=== PATIENT | female | born 1985 | race Caucasian/White ===

== ENCOUNTER 2019-08-01 01:45 | Inpatient (IN) ==
[2019-08-01] MEDS ORDERED: INFLUENZA ADMINISTRATION CHARGE ONE (02:21)
[2019-08-01] MEDS ORDERED: INFLUENZA VIRUS QUAD VACCINE 0.5 ML SYR IM ONE (02:21)
[2019-08-01] MEDS ORDERED: LACTATED RINGER'S 1,000 ML IV SCH ×3 (02:45→05:15)
[2019-08-01] MEDS ORDERED: cefOXitin 2,000 MG in DEXTROSE 5% 50 ML IV SCH (03:00)
[2019-08-01] MEDS ORDERED: CITRIC ACID/SODIUM CITRATE 15 ML UDC PO SCH (03:00)
[2019-08-01 03:06] LABS: Basophils # (auto) 0.03 K/uL (0-0.2); Basophils % (auto) 0.3 %; Eosinophils # (auto) 0.11 K/uL (0-0.5); Eosinophils % (auto) 0.9 %; Hematocrit (blood only) 35.8 % (37-47); Hemoglobin 11.9 g/dL (12.0-16.0); Immature Granulocytes # (auto) 0.07 K/uL (0.00-0.02); Immature Granulocytes % (auto) 0.6 %; Lymphocytes # (auto) 2.84 K/uL (1.2-3.4); Lymphocytes % (auto) 23.8 %; Mean Corpuscular Hemoglobin 29.2 pg (25-34); Mean Corpuscular Volume 87.7 fL (80-100); Mean Platelet Volume 10.6 fL (7.4-10.4); Monocytes # (auto) 0.75 K/uL (0.11-0.59); Monocytes % (auto) 6.3 %; Neutrophils # (auto) 8.11 K/uL (1.4-6.5); Neutrophils % (auto) 68.1 %; Platelet Count 218 K/uL (130-400); RDW Coefficient of Variation 14.1 % (11.5-14.5); RDW Standard Deviation 45.5 fL (36.4-46.3); Red Blood Count 4.08 M/uL (4.2-5.4); White Blood Count 11.91 K/uL (4.8-10.8)
[2019-08-01 03:12] LABS: Mean Corpuscular Hgb Conc 33.2 g/dL (32-36)
--- NOTE | 2019-08-01 03:28 | Anesthesiology Consultation ---
Date of Service August 01, 2019 Assessment & Plan ASA ASA3 Proposed Anesthesia Anesthesia Type: Spinal Risk / Benefits Reviewed With: PT / POA / Parent / Guardian, Accepts Plan and Informed Consent Obtained History Surgery Operation Date: 08/01/19 02:30 Proposed Procedures p Section in LD - Bhavin Alfaro MD Height/Weight Height: 5 ft 6 in Weight: 112.037 kg Allergies Allergy/AdvReac Type Severity Reaction Status Date / Time Penicillins Allergy Unknown Rash Verified 08/01/19 02:05 Medications Home Medications Medication Instructions Recorded Confirmed Last Taken PNV cmb#95-ferrous fumarate-FA 1 tab PO QAM 07/20/19 08/01/19 07/31/19 08:00 [] cetirizine [Zyrtec] 10 mg PO QPM 07/20/19 08/01/19 07/30/19 22:00 insulin glargine [Lantus Solostar 18 unit SUBCUT QPM 07/20/19 08/01/19 07/31/19 21:00 U-100 Insulin] Active Medications Generic Name Dose Route Start Last Admin Trade Name Freq PRN Reason Stop Dose Admin Lactated Ringer's 1,000 mls @ 999 mls/hr 08/01/19 02:45 08/01/19 03:02 Lr IV 08/01/19 03:45 999 mls/hr .Q1H1M ALINE Administration NPO Date Last Intake of Fluids: 08/01/19 Time Last Intake of Fluids: 00:00 Date Last Intake of Solids: 08/01/19 Time Last Intake of Solids: 00:00 Past Medical History Medical History Diabetes in undelivered + insulin during Seasonal allergies Exercise / Class Metabolic Activity II 4-5 Yardwork/Stairs/Walk up hill Past Surgical History Surgical History Hx of section 2018: c/s done 2/2 large fetus SAB with good jeanmarie-operative pain control Past Anesthesia History No Hx of Anesthesia Complications and No Family Hx of Anesthesia Complications History of PONV No Hx of PONV and No Hx of Motion Sickness Social History Smoking Status: Never smoker Hx Alcohol Use: No alcohol intake frequency: holidays/special occasions only Hx Substance Use: No substance use type: does not use Review of Systems denies fever/cough/ colds/ chest pain/ SOB/ LANNY Constitutional: no fever and no chills Respiratory: no cough and no dyspnea denies LANNY Cardiovascular: no chest pain and no dyspnea on exertion Physical Exam Vital Signs Last Vital Signs Temp 36.6 C 08/01/19 02:03 Pulse 100 H 08/01/19 02:03 Resp 18 08/01/19 02:03 BP 125/83 08/01/19 02:03 ENMT Mouth: no TMJ abnormality and no dentition abnormality Thyromental Distance: > or= 3.5 Finger Breadths Mallampati Class: II Neck neck extension not limited Respiratory normal respiratory effort; no respiratory distress Auscultation: lungs clear to auscultation bilaterally Cardiovascular Rate/Rhythm: regular rate and regular rhythm Neurologic moves all extremities Psychiatric Orientation: alert and oriented x 3 Testing Laboratory Results 08/01/19 02:49
--- NOTE | 2019-08-01 04:25 | History and Physical Report ---
DATE OF ADMISSION: 08/01/2019 CHIEF COMPLAINT: Intrauterine at term, gestational diabetes, ruptured membranes, and previous . HISTORY OF PRESENT ILLNESS: The patient is a 34-year-old 2, para 1. General health is good. She is allergic to penicillin which gives her a rash. Her course was complicated by gestational diabetes. She is on insulin. She also has an estimated weight of over 9 pounds. Her due date is 08/07/2019 and she called the answering service and said she had bailey rupture of the membranes at 11:45 p.m. on 07/31/2019. OBSTETRICAL HISTORY: As follows; in 2017 she had a live male , 9 pounds 10 ounces, 39 weeks gestation and she did not have any labor. She just went directly to due to macrosomia. Present has been complicated by gestational diabetes for which she is taking insulin and also an estimated weight by ultrasound of over 9 pounds. As previously stated, she ruptured her membranes on 07/31/2019 at 11:45 p.m. and was previously scheduled for a repeat on 08/02/2019. PAST MEDICAL HISTORY: She has a live male infant 3 years old in good health. She is on insulin for gestational diabetes. ALLERGIES: ALLERGIC TO PENICILLIN WHICH GIVES HER A RASH. PAST SURGICAL HISTORY: She has had a . She has had wisdom teeth removed. SOCIAL HISTORY: No smoking, no alcohol intake. Works at [employer]. FAMILY HISTORY: Mom is 68 in good health, father is 64 in good health. No brothers or sisters. REVIEW OF SYSTEMS: No symptoms of frequent or severe headaches, migraines, ear infections, nosebleeds, or sore throats. PHYSICAL EXAMINATION: GENERAL: Well-developed, well-nourished, 34-year-old white female, alert, oriented x3 and cooperative, in no acute distress, appears stated age. EYES: Conjunctivae are pink. Sclerae are white, no evidence of jaundice. EARS: Had normal light reflex bilaterally. NOSE: Had normal mucosa. Septum is midline. There were no polyps. THROAT: No erythema or evidence of infection. Teeth are in good state of repair. HEAD: Normocephalic, normal distribution of hair. NECK: Supple. Trachea midline. Thyroid is not enlarged. There is no adenopathy appreciated. Both carotids are of good intensity. CHEST: Clear to auscultation and percussion. No wheezes, rales, or rhonchi appreciated. HEART: Had a regular rhythm. S1, S2 are normal. BREASTS: Normal. ABDOMEN: Revealed a well-healed Pfannenstiel scar. Estimated weight over 9 pounds. No CVA tenderness, no calf tenderness. PELVIC: Bailey rupture of membranes. MUSCULOSKELETAL: Revealed no calf tenderness. IMPRESSIONS OF THIS CASE: Macrosomia, gestational diabetes controlled by insulin, bailey rupture of membranes, and intrauterine at term.
[2019-08-01] MEDS ORDERED: NALBUPHINE HCL INJ 10 MG/ML AMP IV PRN (04:41)
[2019-08-01] MEDS ORDERED: DiphenhydrAMINE HCL 50 MG/ML VIAL IV PRN ×2 (04:41→22:41)
[2019-08-01] MEDS ORDERED: PROMETHAZINE HCL 25 MG in SODIUM CHLORIDE 0.9% 50 ML IV PRN ×2 (04:41→05:08)
[2019-08-01] MEDS ORDERED: MoRPHine SULFATE 2 MG/ML CARP IV PRN (04:41)
[2019-08-01] MEDS ORDERED: NALOXONE HCL 1 MG in SODIUM CHLORIDE 0.9% 1000ML 1,000 ML IV PRN (04:41)
[2019-08-01] MEDS ORDERED: ONDANSETRON INJ 2 MG/ML 2 ML VIAL IV PRN ×3 (04:41→22:41)
[2019-08-01] MEDS ORDERED: LACTATED RINGER'S 500 ML IV PRN (04:41)
[2019-08-01] MEDS ORDERED: NALOXONE HCL 0.08 MG in SYRINGE 1.8 ML IV PRN (04:41)
[2019-08-01] MEDS ORDERED: MoRPHine SULFATE PF 1 MG/ML 10 ML AMP/VIAL INT SPINAL ONE (04:41)
[2019-08-01] MEDS ORDERED: NALOXONE HCL 0.4 MG/1 ML VIAL/CARP IV PRN (04:41)
[2019-08-01] MEDS ORDERED: ePHEDrine sulfate 50 MG/ML AMP IV PRN (04:41)
[2019-08-01] MEDS ORDERED: SODIUM CHLORIDE 0.9% 1000ML 1,000 ML IV SCH (04:45)
[2019-08-01] MEDS ORDERED: DC INTRASPINAL MORPHINE SCH (04:45)
[2019-08-01] MEDS ORDERED: NO NARCOTICS OR SEDATIVES SCH (04:45)
[2019-08-01] MEDS ORDERED: OXYTOCIN 10 UNITS/ML VIAL IM ONE (05:00)
[2019-08-01] MEDS ORDERED: SENNA 8.6 MG TAB PO PRN (05:08)
[2019-08-01] MEDS ORDERED: MEPERIDINE HCL 50 MG/ML CARP IV PRN ×2 (05:08→22:41)
[2019-08-01] MEDS ORDERED: OXYCODONE/ACETAMINOPHEN 5mg/325mg TAB PO PRN (05:08)
[2019-08-01] MEDS ORDERED: DIPHTHERIA/TETANUS/PERTUSSIS 0.5 ML SYR/VIAL IM ONE (05:08)
[2019-08-01] MEDS ORDERED: HYDROCORTISONE ACETATE 25 MG SUPP PR PRN (05:08)
[2019-08-01] MEDS ORDERED: BENZOCAINE 20% AER SPR 82.5 GM CAN EXT PRN (05:08)
[2019-08-01] MEDS ORDERED: MAGNESIUM HYDROXIDE SUSP 30 ML UDC PO PRN (05:08)
[2019-08-01] MEDS ORDERED: ZOLPIDEM TARTRATE 5 MG TAB PO PRN ×2 (05:08→22:41)
[2019-08-01] MEDS ORDERED: SUPERCREAM 0.870% 15 GM JAR EXT PRN (05:08)
--- NOTE | 2019-08-01 05:08 | Post Operative Brief Note ---
Immediate Post Op Note v1 Date of Surgery August 01, 2019 Pre & Post Diagnosis Operation Date: 08/01/19 02:30 Pre-Op Diagnosis: 1. Ruptured membranes 2. Gestational diabetes 3. Macrosomia 4. Previous section Post-Op Diagnosis: 1. Ruptured membranes 2. Gestational diabetes 3. Macrosomia 4. Previous section I identified the patient and participated in the time-out.: Yes Procedure Operation Date: 08/01/19 02:30 Actual Procedures p Section in LD for live female infant on 08/01/19 at 0422(Bilateral) - Bhavin Alfaro MD Surgeon Bhavin Alfaro MD [employer] Teacher none Estimated Blood Loss 300 Findings Consistent with Post-Op Diagnosis Fluids 1200 ml Specimens placenta Drains Downing Catheter (placed after anesthesia without difficulty for clear yellow urine) Anesthesia Type Spinal Disposition Accompanied Patient To Recovery: No Disposition: Recovery Room
[2019-08-01] MEDS: OXYTOCIN 20 UNITS in LACTATED RINGER'S 1,000 ML IV SCH ×2 (06:11→13:58)
[2019-08-01] MEDS: KETOROLAC 30 MG/ML VIAL IV PRN ×3 (07:09→20:18)
--- NOTE | 2019-08-01 07:36 | Operative Report ---
DATE OF OPERATION: 08/01/2019 PROCEDURE: Repeat low segment section. INDICATIONS FOR SURGERY: History of macrosomia, estimated weight over 9 pounds, insulin-dependent gestational diabetes. PREOPERATIVE DIAGNOSES: Macrosomia, insulin-dependent diabetes. POSTOPERATIVE DIAGNOSES: Macrosomia, insulin-dependent diabetes. SURGEON: Arnel Alfaro MD ARTIST BLACKSMITH: curriculum assistant principal. ESTIMATED BLOOD LOSS: 300 mL. ANESTHESIA: Spinal. OPERATIVE FINDINGS AND PROCEDURE: The patient was brought to the OR table, correctly identified by armband and conversation. Spinal anesthesia was administered. Downing catheter was inserted aseptically in the bladder, connected to gravity drainage. Compression stockings were applied. Lower abdomen was painted with an alcohol based sterilizing solution, draped in the usual sterile fashion. Level of anesthesia was checked and found to be adequate. The patient identification was done. Incision was made through a previous Pfannenstiel scar. Incision was carried down to the anterior fascia by sharp dissection. Hemostasis was secured by electrocauterization. Fascia was incised transversely from the underlying muscle by blunt and sharp dissection. Recti muscles were in the midline exposing the peritoneum which was carefully raised and entered. There was some separation of the recti muscle and some advancement of the bladder flap. This was taken down. Lower uterine segment was exposed, was scored with a knife, entered with the scissors. Clear amniotic fluid was seen at this time. A vectis retractor was applied to the head and with fundal pressure. Infant's head was delivered. was suctioned through the mouth and the nose. Body was delivered. Cord was clamped and cut and the infant was attended to by the offset press operator, Dr. Kumar who scrubbed and present at the time of delivery. Following this, cord blood was taken. The placenta was removed manually. Uterus, tubes, and ovaries were brought out through the incision. Ten units of Pitocin was placed into the myometrium directly. Uterine cavity was cleansed with a clean sponge. Lower uterine defect was approximated in layers. The muscular layer was approximated with continuous chromic gut suture. The fascial layer was approximated over this with a continuous layer of heavy Vicryl and then several interrupted [id number] sutures of heavy Vicryl were used to place along the incisional edges to secure hemostasis. Bladder flap was restored with a continuous running chromic. Tubes and ovaries were inspected. Cul-de-sac was inspected. There was no hematoma formation of the broad ligament. Hemostasis was excellent. Uterus, tubes, and ovaries were reinserted into the abdominal cavity. Careful anatomical approximation of anterior abdominal wall was performed. The peritoneum was closed with a mattress suture of chromic catgut. Recti muscles approximated with interrupted [id number] suture of chromic catgut. The fascia was closed with continuous interlocking suture of Vicryl on each side, tied in the midline. SubQ was approximated with a running plain and skin edges were approximated with staple clips. The patient tolerated the procedure well and left the OR in good condition. I attest to the content of the Intraoperative Record and any orders documented therein. Any exception s are noted below.
--- NOTE | 2019-08-01 08:58 | Anesthesiology Progress Note ---
Date of Service August 01, 2019 Anesthesia Post Procedure Vital Signs Vital Signs: Temp Pulse Resp BP Pulse Ox 08/01/19 07:46 36.5 C 78 18 123/72 08/01/19 07:44 86 98 08/01/19 07:39 77 100 08/01/19 07:36 88 128/69 08/01/19 07:34 86 99 08/01/19 07:29 89 100 08/01/19 07:26 79 135/75 08/01/19 07:24 75 100 08/01/19 07:19 81 97 08/01/19 07:16 86 18 127/69 08/01/19 07:14 89 99 08/01/19 07:09 78 99 08/01/19 07:06 79 122/63 08/01/19 07:04 86 100 08/01/19 06:59 81 100 08/01/19 06:54 87 100 08/01/19 06:49 85 99 08/01/19 06:46 85 18 114/74 08/01/19 06:44 82 100 08/01/19 06:39 83 99 08/01/19 06:36 78 118/60 08/01/19 06:34 97 H 100 08/01/19 06:29 110 H 98 08/01/19 06:26 86 124/63 08/01/19 06:24 92 H 99 08/01/19 06:19 83 98 08/01/19 06:16 18 L 120/67 08/01/19 06:14 91 H 99 08/01/19 06:09 95 H 98 08/01/19 06:06 82 18 148/63 H 08/01/19 06:04 101 H 98 08/01/19 05:59 98 H 98 08/01/19 05:56 86 18 143/77 H 08/01/19 05:54 87 97 08/01/19 05:51 103 H 91 08/01/19 05:49 93 H 88 L 08/01/19 05:46 88 20 119/60 08/01/19 05:44 91 H 92 08/01/19 05:39 87 99 08/01/19 05:36 84 18 116/65 08/01/19 05:34 80 98 08/01/19 05:29 89 100 08/01/19 05:26 90 18 121/73 0220 05:24 98 H 97 08/01/19 05:23 87 94 08/01/19 05:19 84 99 08/01/19 05:16 36.3 C L 91 H 18 106/58 L 08/01/19 05:15 88 83 L 08/01/19 02:03 36.6 C 100 H 18 125/83 Transfer of Care Handoff Completed per policy Notes Mental Status: alert / awake / arousable and participated in evaluation Patient Amnestic to Procedure: Yes Nausea / Vomiting: adequately controlled Pain: adequately controlled Airway Patency, RR, SpO2: stable & adequate BP & HR: stable & adequate Hydration State: stable & adequate Neuraxial Anesthesia: was administered and sensory block is resolving Anesthetic Complications: no major complications apparent and Pt Satisfied with anesthetic care
[2019-08-01] MEDS: PRENATAL VITAMIN 1 TAB PO SCH (11:02)
[2019-08-01] MEDS: SIMETHICONE 80 MG CHEW PO SCH ×4 (11:02→21:09)
[2019-08-01] MEDS: DOCUSATE SODIUM 100 MG CAP PO SCH ×2 (11:02→21:09)
[2019-08-01] MEDS: FERROUS SULFATE 325 MG TAB PO SCH (11:02)
[2019-08-01] MEDS ORDERED: KETOROLAC 30 MG/ML VIAL IV PRN (22:41)
[2019-08-02] MEDS: IBUPROFEN 600 MG TAB PO PRN ×5 (02:14→23:46)
[2019-08-02] MEDS: OXYCODONE/ACETAMINOPHEN 5mg/325mg TAB PO PRN ×5 (02:15→23:46)
[2019-08-02 07:22] LABS: Basophils # (auto) 0.02 K/uL (0-0.2); Basophils % (auto) 0.2 %; Eosinophils # (auto) 0.14 K/uL (0-0.5); Eosinophils % (auto) 1.6 %; Hematocrit (blood only) 32.4 % (37-47); Hemoglobin 10.6 g/dL (12.0-16.0); Immature Granulocytes # (auto) 0.05 K/uL (0.00-0.02); Immature Granulocytes % (auto) 0.6 %; Lymphocytes # (auto) 1.87 K/uL (1.2-3.4); Lymphocytes % (auto) 21.9 %; Mean Corpuscular Hemoglobin 28.6 pg (25-34); Mean Corpuscular Hgb Conc 32.7 g/dL (32-36); Mean Corpuscular Volume 87.6 fL (80-100); Monocytes # (auto) 0.47 K/uL (0.11-0.59); Monocytes % (auto) 5.5 %; Neutrophils # (auto) 5.98 K/uL (1.4-6.5); Neutrophils % (auto) 70.2 %; Platelet Count 166 K/uL (130-400); RDW Coefficient of Variation 14.2 % (11.5-14.5); White Blood Count 8.53 K/uL (4.8-10.8)
[2019-08-02] MEDS: PRENATAL VITAMIN 1 TAB PO SCH (08:17)
[2019-08-02] MEDS: FERROUS SULFATE 325 MG TAB PO SCH (08:17)
[2019-08-02] MEDS: DOCUSATE SODIUM 100 MG CAP PO SCH ×2 (08:17→20:40)
[2019-08-02] MEDS: SIMETHICONE 80 MG CHEW PO SCH ×4 (08:17→20:40)
--- NOTE | 2019-08-02 08:48 | Surgery Progress Note ---
Date of Service August 02, 2019 Subjective doing well passing gas Physical Exam Constitutional: WD/WN, vitals as above comfortable incision clean dry and intact abdomen soft fundus firm no edema neg Belen's will advance care/diet Results & Data Vital Signs (Past 12 Hours) Vital Signs Temp Pulse Resp BP Pulse Ox 08/02/19 08:00 36.7 C 89 79 H 119/85 95 08/02/19 05:20 36.7 C 80 18 105/73 08/01/19 23:50 36.9 C 80 18 115/78 08/01/19 22:00 18 98 08/01/19 21:00 18 98 Laboratory Results Laboratory Results - last 72 hr 08/01/19 08/01/19 08/02/19 02:49 02:49 06:46 WBC 11.91 H 8.53 RBC 4.08 L 3.70 L Hgb 11.9 L 10.6 L Hct 35.8 L 32.4 L MCV 87.7 87.6 MCH 29.2 28.6 MCHC 33.2 32.7 RDW Std Deviation 45.5 45.0 RDW Coeff of Livia 14.1 14.2 Plt Count 218 166 MPV 10.6 H 10.0 Immature Gran % (Auto) 0.6 0.6 Neut % (Auto) 68.1 70.2 Lymph % (Auto) 23.8 21.9 [place] % (Auto) 6.3 5.5 Eos % (Auto) 0.9 1.6 Baso % (Auto) 0.3 0.2 Immature Gran # (Auto) 0.07 H 0.05 H Neut # (Auto) 8.11 H 5.98 Lymph # (Auto) 2.84 1.87 [place] # (Auto) 0.75 H 0.47 Eos # (Auto) 0.11 0.14 Baso # (Auto) 0.03 0.02 Blood Type A Positive Antibody Screen NEGATIVE
[2019-08-02] MEDS ORDERED: bisacodyL 5 MG TABEC PO SCH (20:00)
[2019-08-02] MEDS ORDERED: COUGH DROP (SUGAR FREE) LOZ 24 LOZ/1 BOX BUCCAL ONE (20:45)
[2019-08-03] MEDS: OXYCODONE/ACETAMINOPHEN 5mg/325mg TAB PO PRN ×3 (04:51→12:09)
[2019-08-03] MEDS: IBUPROFEN 600 MG TAB PO PRN ×3 (04:51→12:10)
[2019-08-03] MEDS ORDERED: bisacodyL 10 MG SUPP PR PRN (05:08)
[2019-08-03 07:27] LABS: Hematocrit (blood only) 31.2 % (37-47); Hemoglobin 10.2 g/dL (12.0-16.0)
[2019-08-03] MEDS: FERROUS SULFATE 325 MG TAB PO SCH (08:03)
[2019-08-03] MEDS: PRENATAL VITAMIN 1 TAB PO SCH (08:03)
[2019-08-03] MEDS: SIMETHICONE 80 MG CHEW PO SCH ×2 (08:03→12:15)
[2019-08-03] MEDS: DOCUSATE SODIUM 100 MG CAP PO SCH (08:03)
--- NOTE | 2019-08-03 08:24 | Obstetrical Progress Note ---
Date of Service August 03, 2019 Assessment & Plan Admission and Anticipated Discharge Date Admission Date: August 01, 2019 Physical Exam Physical Exam: abdomen soft and non tender incision is clean and dry ambulating well no calf tenderness vaginal bleeding scant hgb 10.2 patient requests discharge Results & Data ([facility]) Vital Signs (Past 12 Hours) Vital Signs Temp Pulse Resp BP Pulse Ox 08/02/19 23:30 36.7 C 82 16 117/81 95
--- NOTE | 2019-08-03 09:38 | Discharge Summary ---
Mrs. Hansen was admitted with ruptured membranes. She had been scheduled for a repeat section in about 2 days. She called the answering service, sent to the hospital. Ronal rupture of membranes was confirmed. She then underwent a repeat low segment section. Surgery went well. Bleeding was minimal. She received prophylactic antibiotics Mefoxin 2 grams prior to surgery. Postoperatively, she did well. Bowel sounds returned promptly. Estimated blood loss at the time of surgery was only 300 mL. Postoperative hemoglobin was 10.2. On the second postoperative day, she was ambulating well, eating well, incision was clean and dry. She requested discharge and pain was controlled with a combination of Percocet and Motrin. She was told to call the office for removal of madi and to call if she had a temperature over 100 or any heavy bleeding.
== END 2019-08-03 17:35 | disposition home or self-care (01) | DRG 788 ==
LOC: OPB 01:45 → 4S1 01:49 → 4S2 08:11